=== PATIENT | female | born 1965 | race Caucasian/White ===

== ENCOUNTER → 2018-07-16 | Outpatient (CLI) | payer BC ==
[2018-07-16 15:38] VITALS: BP 119/68; PULSE 53; TEMP 98.2; BMI 28.2
--- NOTE | 2018-07-16 16:11 | P.HPOB ---
History of Present Illness H&P Date: 07/16/18 Chief Complaint: The patient is here for her routine gynecologic exam and mammogram. This is a 52-year-old with an LMP of 07/03/2018. She is status post tubal sterilization. She is without gynecologic complaints. Her menses have been mostly regular every month, but she did skip 2 periods during the past year. They have been regular during the past 6 months. She has had occasional mild hot flashes but these are minimal. Review of Systems The patient has gained 6 pounds over the last 3 years. She denies respiratory, cardiac, or G.I. problems. 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 History of Any Multi-Drug Resistant Organisms: None Reported Past Surgical History: Section (x3), Tonsillectomy, Tubal Ligation Additional Past Surgical History / Comment(s): Colonoscopy 2015. 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 - Past Family History Mother Additional Family Medical History / Comment(s): Abdominal aortic aneurysm. Maternal aunt had breast cancer. Father Family Medical History: Diabetes Mellitus Additional Family Medical History / Comment(s): Grandmother had a brain tumor. Medications and Allergies Home Medications Medication Instructions Recorded Confirmed Type Ibuprofen [Advil] 200 mg PO Q8HR PRN 02/09/16 02/14/16 History Allergies Allergy/AdvReac Type Severity Reaction Status Date / Time No Known Allergies Allergy Verified 07/16/18 15:38 Exam Vital Signs Temp Pulse BP 07/16/18 15:32 98.2 F 53 L 119/68 Intake and Output 07/16/18 07/16/18 07/16/18 06:59 14:59 22:59 Other: Weight 79.379 kg Height 5'6", weight 175 pounds, BMI 28.2. This is a well-developed well-nourished white female who is alert and oriented times 3 in no acute distress. HEENT: Within normal limits. NECK: Supple without mass or thyromegaly. CHEST AND LUNGS: Clear to auscultation. HEART: Regular rate and rhythm. BREASTS: Are without mass or discharge. AXILLARY EXAM: Negative for adenopathy. BACK: Negative for CVA tenderness. ABDOMEN: Soft, nontender, without palpable masses. PELVIC EXAM: Normal external genitalia. Cervix and vagina appear normal. There is no unusual discharge. There is no evidence of prolapse. The uterus is midposition, nongravid size and nontender. There are no palpable adnexal masses or tenderness. RECTAL EXAM: rectovaginal exam is negative for mass or tenderness and is negative for occult blood. EXTREMITIES: Nontender. IMPRESSION: 1. 52 year old perimenopausal female with intermittent oligomenorrhea and occasional vasomotor symptoms. 2. Patient is status post tubal sterilization. PLAN: 1. Pap smear was performed. 2. Self breast awareness was discussed with the patient. 3. Screening mammogram will be done today. 4. Osteoporosis prevention was discussed. I have stressed the importance of adequate calcium, vitamin D and regular exercise. Recommended amounts of calcium and vitamin D were also discussed. 5. She will return in one year.
--- NOTE | 2018-07-19 07:38 | MM ---
Reason for exam: screening (asymptomatic). Last mammogram was performed 3 years and 7 months ago. History: Family history of breast cancer in maternal aunt at age 70. Benign right mammotome panel of the right breast, September 30, 2010. Physical Findings: A clinical breast exam by your physician is recommended on an annual basis and results should be correlated with mammographic findings. MG Screening Mammo w CAD Bilateral CC and MLO view(s) were taken. Prior study comparison: December 22, 2014, bilateral MG screening mammo w CAD. November 07, 2012, [facility] DIGITAL LEFT BREAST MAMMOGRAM w/CAD. The breast tissue is heterogeneously dense. This may lower the sensitivity of mammography. Finding: There are stable coarse heterogeneous, grouped/clustered calcifications in the 12 o'clock anterior position of the left breast. Previous mammotome biopsy in the right breast. No significant changes in finding since December 22, 2014 and November 07, 2012. ASSESSMENT: Benign, BI-RAD 2 RECOMMENDATION: Routine screening mammogram of both breasts in 1 year.
== END | disposition home or self-care (01) ==
LOC: WWCWWP 15:14
PROVIDERS: ATTEND Obstetrics & Gynecology
DX: Z12.31 Encounter for screening mammogram for malignant neoplasm of breast (principal)
CPT/HCPCS: 77067

== ENCOUNTER → 2021-06-24 | Outpatient (CLI) | payer BC ==
--- NOTE | 2021-06-27 11:07 | MM ---
Reason for exam: screening (asymptomatic). Last mammogram was performed 2 years and 11 months ago. History: Family history of breast cancer in maternal aunt at age 70. Benign right mammotome panel of the right breast, September 30, 2010. Physical Findings: A clinical breast exam by your physician is recommended on an annual basis and results should be correlated with mammographic findings. MG 3D Screening Mammo W/Cad Bilateral CC and MLO view(s) were taken. Prior study comparison: July 16, 2018, bilateral MG screening mammo w CAD. December 22, 2014, bilateral MG screening mammo w CAD. The breast tissue is heterogeneously dense. This may lower the sensitivity of mammography. Previous mammotome biopsy in the right breast. New/increased grouped calcifications 9 o'clock posterior depth right breast. ASSESSMENT: Incomplete: need additional imaging evaluation, BI-RAD 0 RECOMMENDATION: Special view mammogram of the right breast. (3D) If lesion persists on supplemental views, image directed ultrasound is recommended. [facility] will attempt to contact patient to return for supplemental views and ultrasound if indicated.
== END | disposition home or self-care (01) ==
LOC: RADMAMWWP 09:45
PROVIDERS: ATTEND Family Medicine
DX: Z12.31 Encounter for screening mammogram for malignant neoplasm of breast (principal); Z80.3 Family history of malignant neoplasm of breast; R92.1 Mammographic calcification found on diagnostic imaging of breast
CPT/HCPCS: 77063; 77067

== ENCOUNTER → 2021-07-06 | Outpatient (CLI) | payer BC ==
[2021-07-06 08:52] VITALS: BP 129/77; PULSE 77; RESP 18; TEMP 98.2
--- NOTE | 2021-07-06 09:49 | P.HPOB ---
History of Present Illness H&P Date: 07/06/21 Chief Complaint: The patient is here for her routine gynecologic exam and ma mmogram w/u. This is a 55-year-old 013 with an LMP of August 2020. The patient is status post tubal sterilization. The patient states her menstrual periods were getting slightly irregular in 2019 and then suddenly stopped after August 2020. She also has developed hot flashes which seem to have plateaued and are tolerable. She is otherwise without complaints. Review of Systems The patient has gained 11 pounds over the last 3 years. She denies respiratory, cardiac, or G.I. problems. Past Medical History Past Medical History: No Reported History, CVA/TIA Additional Past Medical History / Comment(s): TIA in 2011. 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 History of Any Multi-Drug Resistant Organisms: None Reported Past Surgical History: Section, Tonsillectomy, Tubal Ligation Additional Past Surgical History / Comment(s): 3. Colonoscopy 2015(next after 10yr). Past Anesthesia/Blood Transfusion Reactions: No Reported Reaction Past Psychological History: No Psychological Hx Reported Smoking Status: Former smoker Past Alcohol Use History: Occasional (3 per week) Additional Past Alcohol Use History / Comment(s): Quit smoking in 2008. 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 - Past Family History Mother Family Medical History: No Reported History Additional Family Medical History / Comment(s): Abdominal aortic aneurysm. Maternal aunt had breast cancer. Father Family Medical History: Diabetes Mellitus Additional Family Medical History / Comment(s): Grandmother had a brain tumor. Medications and Allergies Home Medications Medication Instructions Recorded Confirmed Type Ibuprofen [Advil] 200 mg PO Q8HR PRN 02/09/16 07/06/21 History Allergies Allergy/AdvReac Type Severity Reaction Status Date / Time No Known Allergies Allergy Verified 07/06/21 08:48 Exam Vital Signs Temp Pulse Resp BP Pulse Ox 07/06/21 08:49 98.2 F 77 18 129/77 97 Intake and Output 07/05/21 07/06/21 07/06/21 22:59 06:59 14:59 Other: Weight 84.368 kg Height 5 feet 6 inches, weight 186 pounds, BMI 30.0. This is a well-developed well-nourished white female who is alert and oriented times 3 in no acute distress. HEENT: Within normal limits. NECK: Supple without mass or thyromegaly. CHEST AND LUNGS: Clear to auscultation. HEART: Regular rate and rhythm. BREASTS: Are without mass or discharge. AXILLARY EXAM: Negative for adenopathy. BACK: Negative for CVA tenderness. ABDOMEN: Soft, nontender, without palpable masses. PELVIC EXAM: Normal external genitalia. Cervix and vagina appear normal. There is no unusual discharge. There is no evidence of prolapse. The uterus is m idposition, multiparous, nongravid size and nontender. There are no palpable adnexal masses or tenderness. RECTAL EXAM: Rectovaginal exam is negative for mass or tenderness and is negative for occult blood. EXTREMITIES: Nontender. IMPRESSION: 1. 55-year-old perimenopausal female who is status post tubal sterilization, with normal gynecologic exam. 2. Oligomenorrhea with vasomotor symptoms consistent with her perimenopausal status. 3. Incomplete screening mammogram was done on 06/24/2021 and this requires a right breast workup. PLAN: 1. Pap smear cotest was performed. 2. Self breast awareness was discussed with the patient. We have also discussed symptoms associated with inflammatory breast cancer. 3. Right breast workup as follow-up to her 06/24/2021 screening mammogram will be done today. 4. Osteoporosis prevention was discussed. I have stressed the importance of adequate calcium, vitamin D and regular exercise. Recommended amounts of calcium and vitamin D were also discussed. 5. The patient has not received Covid vaccination. She did have Covid about 5 weeks ago and has recovered. She plans to get the Covid vaccination in the near future. 6. She was advised to return in one year for her annual well woman exam.
== END ==
LOC: WWCWWP 08:34
PROVIDERS: ATTEND Obstetrics & Gynecology
DX: N91.5 Oligomenorrhea, unspecified (principal); Z98.51 Tubal ligation status; Z86.73 Personal history of transient ischemic attack (TIA), and cerebral infarction without residual deficits; Z87.891 Personal history of nicotine dependence

== ENCOUNTER → 2021-07-06 | Outpatient (CLI) | payer BC ==
--- NOTE | 2021-07-07 10:32 | MM ---
Reason for exam: additional evaluation requested from abnormal screening. Last mammogram was performed less than 1 month ago. History: Family history of breast cancer in maternal aunt at age 70. Benign right mammotome panel of the right breast, September 30, 2010. Physical Findings: Nurse did not find any significant physical abnormalities on exam. MG 3D Work Up W/Cad RT Spot compression CC, spot compression ML, and ML view(s) were taken of the right breast. Prior study comparison: June 24, 2021, bilateral MG 3d screening mammo w/cad. July 16, 2018, bilateral MG screening mammo w CAD. The breast tissue is heterogeneously dense. This may lower the sensitivity of mammography. Finding: There are increased intermediate concern, suspicious grouped/clustered, fine calcifications in the upper outer quadrant, posterior position of the right breast, 6cm from the nipple. New finding since June 24, 2021 and July 16, 2018. These results were verbally communicated with the patient and result sheet given to the patient on 07/06/21. ASSESSMENT: Suspicious, BI-RAD 4 RECOMMENDATION: Stereotactic core biopsy of the right breast. Called Dr. Walker's office with mammographic findings and has scheduled an appointment for the patient for 07/14/21 at 3:[address] Groves. PRELIMINARY REPORT CALLED AND FAXED TO DR. GROVES ON 07/06/21.
== END | disposition home or self-care (01) ==
LOC: RADMAMWWP 10:54
PROVIDERS: ATTEND Family Medicine
DX: R92.8 Other abnormal and inconclusive findings on diagnostic imaging of breast (principal); Z80.3 Family history of malignant neoplasm of breast
CPT/HCPCS: 77061; 77065

== ENCOUNTER → 2021-08-16 | Outpatient (CLI) | payer BC ==
--- NOTE | 2021-08-16 14:13 | US ---
EXAMINATION TYPE: US thyroid st tissue head/neck DATE OF EXAM: 08/16/2021 COMPARISON: NONE CLINICAL HISTORY: 55-year-old female R13.10 dysphagia, R09.89. TECHNIQUE: Multiple sonographic images of the thyroid gland are obtained. FINDINGS: GLAND SIZE: Right Lobe: 4.5 x 1.5 x 1.5 cm Overall Parenchyma: Slightly heterogenous Left Lobe: 4.3 x 1.3 x 1.2 cm Overall Parenchyma: Slightly heterogeneous Isthmus Thickness: 0.5 cm There is a tiny 2 mm cyst in the lateral aspect of the right upper lobe. No other discrete nodules ar e seen. Bilateral neck scanned, no evidence of lymphadenopathy. IMPRESSION: Solitary tiny 2 mm benign cyst in the right upper pole. No other discrete nodules. Overall thyroid gl and measures normal size.
== END | disposition home or self-care (01) ==
LOC: RADUSWWP 13:22
PROVIDERS: ATTEND Family Medicine
DX: E04.1 Nontoxic single thyroid nodule (principal)
CPT/HCPCS: 76536

== ENCOUNTER → 2022-02-07 | Outpatient (CLI) | payer BC ==
[2022-02-07 23:50] LABS: Thyroid Peroxidase Antibodies 19.2 U/mL (0.0-33.0)
--- NOTE | 2022-02-09 07:13 | CT ---
EXAMINATION TYPE: CT soft tissue neck w con DATE OF EXAM: 02/07/2022 COMPARISON: None HISTORY: dysphagia CT DLP: 597.20 mGycm CONTRAST: CT scan of the neck is performed with IV Contrast, patient injected with 70 mL of Isovue 300. Contrast enhanced CT of the neck was performed from the skull base through the lung apices. AIRWAY: The supraglottic, glottic, and subglottic portions of the airway appear patent and free of mass. SALIVARY GLANDS: The submandibular and parotid glands are free of mass or inflammatory process. THYROID GLAND: No nodules or masses seen. LYMPH NODES: No adenopathy seen greater than 1cm. LUNG APICES: No nodule or mass is seen. OTHER: Vascular structures are patent. No significant degenerative change of the cervical spine. N o abscess seen. IMPRESSION: No significant abnormality to account for the patient's symptoms.
== END | disposition home or self-care (01) ==
LOC: RADCTMAIN 15:18
PROVIDERS: ATTEND Otolaryngology
DX: R13.10 Dysphagia, unspecified (principal)
CPT/HCPCS: 86800; 86376; 70491; Q9967

== ENCOUNTER → 2022-03-08 | Outpatient (CLI) | payer BC ==
--- NOTE | 2022-03-08 08:14 | MM ---
Reason for Exam: Follow-up at short interval from prior study. Last screening mammogram was performed 9 month(s) ago. Patient History: Menarche at age 14. First Full-Term at age 22. Postmenopausal. 09/30/2010, Benign Core Biopsy on the right side. Maternal aunt had breast cancer, age 70. Risk Values: Steph 5 year model risk: 1.2%. NCI Lifetime model risk: 7.6%. Prior Study Comparison: 07/16/2018 Bilateral Screening Mammogram, [facility]. 06/24/2021 Bilateral Screening Mammogram, [facility]. 07/06/2021 Right Diagnostic Mammogram, [facility]. Tissue Density: Right: The breast tissue is heterogeneously dense. This may lower the sensitivity of mammography. Findings: Analyzed By CAD. 2 microclips from prior biopsies, the more lateral one reflecting the more recent benign biopsy. No significant change from prior exams. Patient will be due for annual screening in 3 months. Overall Assessment: Benign, BI-RAD 2 Management: Screening Mammogram of both breasts in 3 months. 1. Patient should continue monthly self breast exams. 2. A clinical breast exam by your physician is recommended on an annual basis. 3. This exam should not preclude additional follow-up of suspicious palpable abnormalities. Results were given to the patient verbally at the time of exam. Electronically signed and approved by: Mynor Horton M.D. Radiologist
== END | disposition home or self-care (01) ==
LOC: RADMAMWWP 07:37
PROVIDERS: ATTEND Family Medicine
DX: R92.8 Other abnormal and inconclusive findings on diagnostic imaging of breast (principal); Z78.0 Asymptomatic menopausal state; Z80.3 Family history of malignant neoplasm of breast
CPT/HCPCS: 77061; 77065

== ENCOUNTER → 2022-07-05 | Outpatient (CLI) | payer BC ==
--- NOTE | 2022-07-05 12:35 | MM ---
Reason for Exam: Screening (asymptomatic). Last screening mammogram was performed 12 month(s) ago. Patient History: Menarche at age 14. First Full-Term at age 22. Postmenopausal. Patient has history of breast feeding. 09/30/2010, Benign Core Biopsy on the right side. Maternal aunt had breast cancer, age 70. Risk Values: Steph 5 year model risk: 1.2%. NCI Lifetime model risk: 7.6%. Prior Study Comparison: 09/13/2010 Bilateral Screening Mammogram, [facility]. 09/19/2010 Right Diagnostic Mammogram, [facility]. 01/03/2011 Right Diagnostic Mammogram, [facility]. 01/03/2011 Right Diagnostic Ultrasound, [facility]. 07/26/2011 Bilateral Diagnostic Mammogram, [facility]. 07/26/2011 Right Diagnostic Ultrasound, [facility]. 11/05/2012 Bilateral Screening Mammogram, [facility]. 11/07/2012 Left Diagnostic Mammogram, [facility]. 12/22/2014 Bilateral Screening Mammogram, [facility]. 07/16/2018 Bilateral Screening Mammogram, [facility]. 06/24/2021 Bilateral Screening Mammogram, [facility]. 07/06/2021 Right Diagnostic Mammogram, [facility]. 03/08/2022 Right MG 3D diag mammo w/cad RT, [facility]. Tissue Density: The breast tissue is heterogeneously dense. This may lower the sensitivity of mammography. Findings: Analyzed By CAD. There is no suspicious group of microcalcifications or new suspicious mass in either breast. Overall Assessment: Benign, BI-RAD 2 Management: Screening Mammogram of both breasts in 1 year. A clinical breast exam by your physician is recommended on an annual basis and results should be correlated with mammographic findings. Electronically signed and approved by: Steve Gan M.D. Radiologis
== END | disposition home or self-care (01) ==
LOC: RADMAMWWP 07:44
PROVIDERS: ATTEND Family Medicine
DX: Z12.31 Encounter for screening mammogram for malignant neoplasm of breast (principal); Z80.3 Family history of malignant neoplasm of breast; Z78.0 Asymptomatic menopausal state; Z98.890 Other specified postprocedural states
CPT/HCPCS: 77063; 77067

== ENCOUNTER → 2023-11-20 | Outpatient (CLI) | payer BC ==
--- NOTE | 2023-11-22 18:48 | MM ---
Reason for Exam: Screening (asymptomatic). Last mammogram was performed 1 year(s) and 5 month(s) ago. Patient History: Menarche at age 14. First Full-Term at age 22. Postmenopausal. Patient has history of breast feeding. 2020, Stereotactic Core Biopsy on the Right side. 09/30/2010, Benign Core Biopsy on the right side. Maternal aunt had breast cancer, age 70. Risk Values: Steph 5 year model risk: 1.7%. NCI Lifetime model risk: 9.1%. Prior Study Comparison: 06/24/2021 Bilateral Screening Mammogram, [facility]. 07/06/2021 Right Diagnostic Mammogram, [facility]. 03/08/2022 Right MG 3D diag mammo w/cad RT, [facility]. 07/05/2022 Bilateral MG 3D screening mammo w/cad, [facility]. Tissue Density: The breasts are heterogeneously dense, which may obscure small masses. Findings: Analyzed By CAD. 2 microclips right breast from prior biopsies. There is no suspicious group of microcalcifications or new suspicious mass in either breast. Overall Assessment: Negative, BI-RAD 1 Management: Screening Mammogram of both breasts in 1 year. . Patient should continue monthly self-breast exams. A clinical breast exam by your physician is recommended on an annual basis. This exam should not preclude additional follow-up of suspicious palpable abnormalities. Note on Steph scores and lifetime risk: 1. A Steph score greater than 3% is considered moderate risk. If this is the case, consider specialist referral to assess eligibility for a risk reducing agent. 2. If overall lifetime risk for the development of breast cancer is 20% or higher, the patient may qualify for future screening with alternating mammogram and breast MRI. Electronically signed and approved by: Mynor Horton M.D. Radiologist
== END | disposition home or self-care (01) ==
LOC: RADMAMWWP 07:34
PROVIDERS: ATTEND Family Medicine
DX: Z12.31 Encounter for screening mammogram for malignant neoplasm of breast (principal); Z78.0 Asymptomatic menopausal state; Z80.3 Family history of malignant neoplasm of breast
CPT/HCPCS: 77063; 77067

== ENCOUNTER → 2025-02-18 | Outpatient (CLI) | payer BC ==
--- NOTE | 2025-02-18 10:06 | MM ---
Reason for Exam: Screening (asymptomatic). Last mammogram was performed 1 year(s) and 3 month(s) ago. Patient History: Menarche at age 14. First Full-Term at age 22. Postmenopausal. Patient has history of breast feeding. 2020, Stereotactic Core Biopsy on the Right side. 09/30/2010, Benign Core Biopsy on the right side. Maternal aunt had breast cancer, age 70. Risk Values: Steph 5 year model risk: 1.8%. NCI Lifetime model risk: 8.9%. Prior Study Comparison: 07/16/2018 Bilateral Screening Mammogram, [facility]. 06/24/2021 Bilateral Screening Mammogram, [facility]. 07/06/2021 Right Diagnostic Mammogram, [facility]. 03/08/2022 Right MG 3D diag mammo w/cad RT, [facility]. 07/05/2022 Bilateral MG 3D screening mammo w/cad, [facility]. 11/20/2023 Bilateral MG 3D screening mammo w/cad, [facility]. Tissue Density: The breasts are heterogeneously dense, which may obscure small masses. Findings: Analyzed By CAD. There is no suspicious group of microcalcifications or new suspicious mass in either breast. Overall Assessment: Benign, BI-RAD 2 Management: Screening Mammogram of both breasts in 1 year. . Patient should continue monthly self-breast exams. A clinical breast exam by your physician is recommended on an annual basis. This exam should not preclude additional follow-up of suspicious palpable abnormalities. Note on Steph scores and lifetime risk: 1. A Steph score greater than 3% is considered moderate risk. If this is the case, consider specialist referral to assess eligibility for a risk reducing agent. 2. If overall lifetime risk for the development of breast cancer is 20% or higher, the patient may qualify for future screening with alternating mammogram and breast MRI. [facility], , 02/18/2025 10:03 AM. Electronically signed and approved by: Steve Gan M.D. Radiologis
== END | disposition home or self-care (01) ==
LOC: RADMAMWWP 08:30
PROVIDERS: ATTEND Family Medicine
DX: Z12.31 Encounter for screening mammogram for malignant neoplasm of breast (principal); R92.333 Mammographic heterogeneous density, bilateral breasts; Z78.0 Asymptomatic menopausal state; Z80.3 Family history of malignant neoplasm of breast
CPT/HCPCS: 77063; 77067